=== PATIENT | female | born 2000 | race Hispanic/Latino ===

== ENCOUNTER 2024-08-30 23:05 | Emergency (ER) | payer SELFPAY ==
[~2024-08-30] VITALS: Ht 157.5 cm; Wt 113.4 kg
--- NOTE | 2024-08-30 23:31 | NUR ---
PT TAKEN TO RESTROOM FOR UA COLLECTION
[2024-08-30] MEDS: acetaMINOPHEN 500 MG TABLET PO STA (23:56)
--- NOTE | 2024-08-31 00:03 | HMCIMG ---
ANKLE COMP 3VWS RT HISTORY: Trauma COMPARISON: None TECHNIQUE: 4 images of trauma right ankle were. FINDINGS: There is talotibial joint dislocation. Nondisplaced fracture cannot be excluded Extensive soft tissue swelling is seen. Degenerative changes are seen. IMPRESSION: 1. Findings as described above.
[2024-08-31 00:27] VITALS: TEMP 98.8
--- NOTE | 2024-08-31 00:56 | ERN ---
ED Note History of Present Illness Stated Complaint: TWISTED RT ANKLE Chief Complaint: Ankle Problem Time Seen by MD: 23:07 Time Seen by Midlevel: 23:10 Dictation: 24-year-old female with a past medical history coming in complaining of right ankle pain after tripping with a seatbelt coming out of the car. Patient did not hit her head, no LOC, no blood thinners. Allergies: Coded Allergies: No Known Allergies (Unverified Allergy, Unknown, 08/30/24) Past Medical History Past Medical History: No Pertinent History Surgical History: None LMP: Jun 01, 2024 Review of System Dictation Constitutional: Negative for fever,chills, and weight loss Eyes: Negative for injury, pain,redness, and discharge ENT: Negative for injury,pain or swelling Cardiovascular: Negative for chest pain, palpitations, and edema Respiratory: Negative for shortness of breath, cough, and wheezing, Abdomen/GI: Negative for abdominal pain, nausea, vomiting, diarrhea, and constipation Back: Negative for injury and pain : Negative for injury, bleeding and discharge MS/Extremity: Negative for injury and deformity complaining of right ankle pain Skin: Negative for rash, and discoloration Neuro: Negative for headache, weakness, numbness, tingling, and seizure Psych: Negative for suicide ideation, homicidal ideation, and hallucinations Review of Systems: was completed Initial Vital Sign VS Vital Signs Date Time Temp Pulse Resp B/P (MAP) Pulse Ox O2 Delivery O2 Flow Rate FiO2 08/30/24 23:06 100.0 90 20 141/95 99 Room Air 08/30/24 23:43 0 21 Physical Exam Dictation General: awake, alert, NAD Head/Face: Normocephalic, atraumatic Eyes: PERRL, EOMI, vision at baseline ENT: oral cavity clear, TMs clear, no signs of infection Neck: Trachea midline, supple, no nuchal rigidity Cardiovascular: RRR, normal S1/S2, No MRGs, no JVD Respiratory: CTAB, no respiratory distress, No rales or wheezes Abdomen: Soft, non-tender, non-distended, normal bowel sounds, no guarding or rebound. Skin: Warm, dry, normal turgor, no rash MS/Extremity: Pulses equal, no cyanosis, neurovascular intact, FROM , right ankle swelling, Neuro: COAx4, GCS 15, strength 5/5, CN 2-12 intact, normal cerebellar exam, normal gait, Psych: Normal behavior, mood, and affect normal Results (Laboratory/Radiology) Laboratory/Radiology Laboratory Tests Test 08/30/24 23:39 Urine HCG, Qualitative NEGATIVE (NEGATIVE) Labs Reviewed?: Yes ED Course ED Course Orders Procedure Category Date Status Time Ankle Comp 3vws Rt RAD 08/30/24 Resulted 23:16 Acetaminophen 500mg PHA 08/30/24 Complete Tab (Tylenol 500mg T 23:16 ,Urine Test LAB 08/30/24 Complete 23:16 Ankle Comp 3vws Rt RAD 08/31/24 Resulted 00:00 *Nursing CPOE 08/31/24 Transmitted Communication: 00:56 Current Medications Medications (Trade) Dose Ordered Sig/Aravind Route PRN Reason Start Time Stop Time Status Last Admin Dose Admin Acetaminophen (TYLenol 500MG TAB) 1,000 mg ONCE STAT PO 08/30/24 23:16 08/30/24 23:18 DC 08/30/24 23:56 Vital Signs Date Time Temp Pulse Resp B/P (MAP) Pulse Ox O2 Delivery O2 Flow Rate FiO2 08/31/24 01:00 98.1 72 18 121/60 98 Room Air* 0 21 08/30/24 23:43 98.8 74 20 125/68 98 Room Air* 0 21 08/30/24 23:06 100.0 90 20 141/95 99 Room Air Medical Decision Making MDM MDM: 24-year-old female with a past medical history coming in complaining of right ankle pain after tripping with a seatbelt coming out of the car. Patient did not hit her head, no LOC, no blood thinners. On physical exam patient has clear bilateral lung sounds, abdomen is soft nondistended, no tenderness to palpation to the bilateral hips, only pain when I palpate the right ankle. Swelling noted to the right ankle, pedal pulse intact, serum Na is warm to touch, cap refill less than 2 seconds. X-ray does not show any acute findings, interpreted by myself and ER MD. we will apply chills splint and have patient follow up with PCP in 1-2 days. Differential diagnosis: Ankle contusion, ankle fracture, sprain Rationale: Tests considered and ordered secondary to shared decision making include: Previous outside records reviewed: Old ER visits. Risk of complication and/or morbidity or mortality of patient management: None Medications-Per medication reconciliation Need for hospitalization: Patient does not meet criteria for hospitalization. Need for emergency major/minor surgery: No There are no social concerns with this patient. Prescription drug management Prescriptions will include symptomatic care Patient's prior external medical records from other ER visits were reviewed by me as indicated. Prior testing and results from previous visits were reviewed. Prior tests were taken into account with medical decision making and resource utilization, independent historian/historians were used to obtain complete medical history. I independently interpreted the test that were performed, results were reviewed by me and considered findings on radiology if ordered. Medical management and examination interpretation discussions were had by me with other qualified healthcare professionals as indicated for the patient's care. DX & DISP Disposition: Discharge Departure Impression: Primary Impression: Ankle sprain Condition: Stable Additional Instructions: You can apply icy ankle to decrease swelling and help with pain. Can take Tylenol or Motrin [id number] for pain management. Follow up with PCP in 1-2 days and return to the ER if symptoms worsen. Referrals: SELF,REFERRAL (PCP) Time of Disposition: 00:55 I have reviewed the case, and I agree with, Diagnosis and Plan ATTESTATION BY PHYSICIAN I PERFORMED THE SUBSTANTIVE PORTION OF THE VISIT. I HAVE REVIEWED AND PERSONALLY MADE AND APPROVED THE MANAGEMENT PLAN THAT IS DOCUMENTED IN THE NOTE BY MYSELF FOR THE A PP. I ACKNOWLEDGED FOR RESPONSIBILITY FOR THE PATIENT'S MANAGEMENT PLAN. PATO MONTANO NP Aug 31, 2024 00:56 CHRISTIN ROUSE MD Aug 31, 2024 06:36
[2024-08-31 01:00] VITALS: BP 121/60; PULSE 72; RESP 18; TEMP 98.1; O2SAT 98
--- NOTE | 2024-08-31 01:21 | HMCIMG ---
ANKLE COMP 3VWS RT HISTORY: Ankle pain COMPARISON: None TECHNIQUE: 3 images of right ankle were obtained. FINDINGS: There is no acute displaced fracture or dislocation. There is soft tissue swelling. IMPRESSION: 1. Findings as described above.
== END 2024-08-31 01:07 | disposition home or self-care (01) ==
LOC: EDH 23:05
DX: S93.401A Sprain of unspecified ligament of right ankle, initial encounter (principal); W01.0XXA Fall on same level from slipping, tripping and stumbling without subsequent striking against object, initial encounter; Y93.89 Activity, other specified; Y92.89 Other specified places as the place of occurrence of the external cause; Y99.8 Other external cause status
CPT/HCPCS: 29515; 73610; 81025; 99284